=== PATIENT | female | born 1985 | race Caucasian/White ===

== ENCOUNTER 2016-07-07 19:24 | Emergency (ER) | payer BC, OTHER ==
[2016-07-07 19:47] VITALS: BP 106/68; PULSE 119; TEMP 98.4; BMI 28.3
[2016-07-07] MEDS ORDERED: predniSONE 20 MG TABLET (UD) PO ONE (20:27)
[2016-07-07] MEDS ORDERED: ALBUTEROL SO4 0.083% IH SOL 2.5 MG/3 ML VIAL.NEB. NEB ONE (20:27)
[2016-07-07] MEDS ORDERED: IPRATROPIUM BR 0.02% 0.5 MG/2.5 ML VIAL.NEB. NEB ONE (20:27)
[2016-07-07] MEDS ORDERED: predniSONE 20 MG TABLET (UD) ONE (20:28)
--- NOTE | 2016-07-07 20:28 | PDOC ---
History of Present Illness - History of Present Illness Initial Comments: 07/07/16 20:37 Patient is a 31 year old female with significant medical hx of asthma and hypothyroidism who is presenting to the ED with unrelenting cough since today. The patient reports using her ventolin several times today without any relief. She resorted to using her nebulizer but states that it hasnt helped either. The patient complains of associated dyspnea with her cough. Patient reports she was diagnosed with asthma three years ago and it tends to exacerbate during the winter. The patient is accompanied by her mother who is reporting the same symptoms. Denies fever, chills, chest pain, nausea, vomiting, diarrhea, diaphoresis. <Rosalba Berger - Last Filed: 07/07/16 20:37> - General History Source: Patient Exam Limitations: No Limitations <Pravin Ocampo - Last Filed: 07/11/16 08:21> - General Chief Complaint: Asthma Stated Complaint: ASTHMA Time Seen by Provider: 07/07/16 20:18 Past History <Rosalba Berger - Last Filed: 07/07/16 20:37> - Past Medical History Asthma: Yes - Psycho/Social/Smoking Cessation Hx Suicidal Ideation: No Smoking History: Never smoked <Pravin Ocampo - Last Filed: 07/11/16 08:21> - Past Medical History Allergies/Adverse Reactions: Allergies Allergy/AdvReac Type Severity Reaction Status Date / Time No Known Allergies Allergy Verified 07/07/16 19:28 Home Medications: Ambulatory Orders Albuterol Sulfate Inhaler - [Ventolin HFA Inhaler -] 1 - 2 inh PO Q4H PRN #1 Albuterol Sulfate Inhaler - [Ventolin HFA Inhaler -] 1 - 2 inh PO Q4H PRN #1 inhaler 07/07/16 Prednisone [Deltasone -] 60 mg PO DAILY #12 tablet 07/07/16 Oseltamivir Phosphate [Tamiflu -] 75 mg PO BID #10 capsule 07/09/16 Review of Systems - Review of Systems Comments:: 07/07/16 20:38 GENERAL/CONSTITUTIONAL: No fever or chills. No weakness. HEAD, EYES, EARS, NOSE AND THROAT: No change in vision. No ear pain or discharge. No sore throat. CARDIOVASCULAR: No chest pain. RESPIRATORY: Cough, dyspnea. No wheezing or hemoptysis. GASTROINTESTINAL: No nausea, vomiting, diarrhea or constipation. GENITOURINARY: No dysuria, frequency, or change in urination. MUSCULOSKELETAL: No joint or muscle swelling or pain. No neck or back pain. SKIN: No rash NEUROLOGIC: No headache, vertigo, loss of consciousness, or change in strength/ sensation. <Rosalba Berger - Last Filed: 07/07/16 20:37> - Review of Systems Able to Perform ROS?: Yes Comments:: 07/11/16 08:21 CORRECTION TO SCRIBE NOTE: PULM is positive for wheezing <DamarisPravin - Last Filed: 07/11/16 08:21> *Physical Exam - Vital Signs Last Vital Signs Temp Pulse Resp BP Pulse Ox 98.4 F 119 H 20 106/68 97 07/07/16 19:28 07/07/16 19:28 07/07/16 19:28 07/07/16 19:28 07/07/16 19:28 - Physical Exam Comments: 07/07/16 20:38 GENERAL: Awake, alert, and fully oriented, in no acute distress HEAD: No signs of trauma EYES: PERRLA, EOMI, sclera anicteric, conjunctiva clear ENT: Auricles normal inspection, hearing grossly normal, nares patent, oropharynx clear without exudates. Moist mucosa NECK: Normal ROM, supple, no lymphadenopathy, JVD, or masses LUNGS: Expiratory wheezes bilaterally. No crackles HEART: Regular rate and rhythm, normal S1 and S2, no murmurs, rubs or gallops ABDOMEN: Soft, nontender, normoactive bowel sounds. No guarding, no rebound. No masses EXTREMITIES: Normal range of motion, no edema. No clubbing or cyanosis. No cords, erythema, or tenderness NEUROLOGICAL: Cranial nerves II through XII grossly intact. Normal speech, normal gait SKIN: Warm, Dry, normal turgor, no rashes or lesions noted. ENDOCRINE: No increased thirst. No abnormal weight change. HEMATOLOGIC/LYMPHATIC: No anemia, easy bleeding, or history of blood clots. ALLERGIC/IMMUNOLOGIC: No hives or skin allergy. <Rosalba Berger - Last Filed: 07/07/16 20:37> - Vital Signs Last Vital Signs Temp Pulse Resp BP Pulse Ox 98.4 F 119 H 20 106/68 97 07/07/16 19:28 07/07/16 19:28 07/07/16 19:28 07/07/16 19:28 07/07/16 19:28 <Pravin Ocampo - Last Filed: 07/11/16 08:21> Medical Decision Making - Medical Decision Making 07/07/16 21:35 A portion of this note was documented by scribe services under my direction. I have reviewed the details of the note, within reason, and agree with the documentation with the following case summary and management plan written by me. Patient treated in the ED. Nursing notes are reviewed and incorporated into the medical decision-making. Vital signs reviewed. Peripheral IV access obtained by the nurse, laboratory studies are drawn and sent, reviewed and interpreted by myself. Vital Signs Temp Pulse Resp BP Pulse Ox 98.4 F 119 H 20 106/68 97 07/07/16 19:28 07/07/16 19:28 07/07/16 19:28 07/07/16 19:28 07/07/16 19:28 31-year-old female with past medical history of hypothyroidism, asthma, never hospitalized presents with asthma exacerbation. She has a positive sick contact with her mother with URI symptoms. Developed wheezing today. Has used her albuterol pump multiple times. Came into the ED for evaluation. Denies fevers or chills. Denies cough. Patient is couple appearing but tachycardic likely secondary to multiple albuterol uses. She is wheezing. Patient was given nebulizers and steroids with drastic improvement. Patient feels comfortable to go home and breathing comfortably.I discussed the physical exam findings, ancillary test results and final diagnoses with the patient. I answered all of the patient's questions. The patient was satisfied with the care received and felt comfortable with the discharge plan and treatment plan. The patient will call their primary care physician within 24 hours to arrange follow-up and will return to the Emergency Department with any new, persistant or worsening symptoms. <Pravin Ocampo - Last Filed: 07/11/16 08:21> *DC/Admit/Observation/Transfer - Attestations Scribe Attestion: 07/07/16 20:39 Documentation prepared by Rosalba Berger, acting as medical malpractice paralegal for Pravin Ocampo MD. <Rosalba Berger - Last Filed: 07/07/16 20:37> - Discharge Dispostion Admit: No <Pravin Ocampo - Last Filed: 07/11/16 08:21> Diagnosis at time of Disposition: Asthma exacerbation - Discharge Dispostion Disposition: HOME Condition at time of disposition: Improved - Prescriptions Prescriptions: Prednisone [Deltasone -] 60 mg PO DAILY #12 tablet Albuterol Sulfate Inhaler - [Ventolin HFA Inhaler -] 1 - 2 inh PO Q4H PRN #1 PRN Reason: Wheezing Albuterol Sulfate Inhaler - [Ventolin HFA Inhaler -] 1 - 2 inh PO Q4H PRN #1 inhaler PRN Reason: Wheezing - Referrals Referrals: Mary Hurley MD [Primary Care Provider] - - Patient Instructions Printed Discharge Instructions: Asthma -- Adult Additional Instructions: Take 2 puffs of albuterol every 4 hours as needed for wheezing. Take 60 mg prednisone daily for the next 4 days.
[2016-07-07] MEDS ORDERED: ALBUTEROL SO4 2.5/IPRATROPIUM 0.5 INH SOL 3 ML VIAL.NEB. NEB ONE (20:33)
== END 2016-07-07 21:56 | disposition home or self-care (01) ==
LOC: JER 19:24 → JERFT 19:24 → JER 21:56
PROC: 3E0F7GC Introduction of Other Therapeutic Substance into Respiratory Tract, Via Natural or Artificial Opening (ICD-10-PCS; principal; 2016-07-07)
PROC: 3E0F7GC Introduction of Other Therapeutic Substance into Respiratory Tract, Via Natural or Artificial Opening (ICD-10-PCS; 2016-07-07)
DX: J45.901 Unspecified asthma with (acute) exacerbation (principal); E03.9 Hypothyroidism, unspecified
CPT/HCPCS: 99281-25

== ENCOUNTER 2016-07-09 17:58 | Emergency (ER) | payer BC, OTHER ==
[2016-07-09 18:04] VITALS: BP 116/82; TEMP 99; BMI 28.3
[2016-07-09] MEDS ORDERED: ALBUTEROL SO4 2.5/IPRATROPIUM 0.5 INH SOL 3 ML VIAL.NEB. NEB ONE ×2 (18:31→18:34)
--- NOTE | 2016-07-09 18:44 | PDOC ---
History of Present Illness - General Chief Complaint: Cold Symptoms Stated Complaint: SOB/FEVER Time Seen by Provider: 07/09/16 18:20 History Source: Patient Exam Limitations: No Limitations - History of Present Illness Initial Comments: 07/09/16 18:34 Acute reassess the patient of asthma. Patient states mother and she were seen in this emergency department 2 days ago, was treated with albuterol nebulizers and prednisone with some good resolved. Patient was discharged and has continued albuterol pump and prednisone at home. Mother needed admission and is still currently in the hospital. Patient is concerned her apartment is infested with mold which is causing both her and her mothers respiratory illness. Severity: reports: mild, moderate Associated Symptoms: reports: fever/chills Past History - Travel Traveled outside of the country in the last 30 days: No Close contact w/someone who was outside of country & ill: No - Past Medical History Allergies/Adverse Reactions: Allergies Allergy/AdvReac Type Severity Reaction Status Date / Time No Known Allergies Allergy Verified 07/09/16 18:04 Home Medications: Ambulatory Orders Albuterol Sulfate Inhaler - [Ventolin HFA Inhaler -] 1 - 2 inh PO Q4H PRN #1 Albuterol Sulfate Inhaler - [Ventolin HFA Inhaler -] 1 - 2 inh PO Q4H PRN #1 inhaler 07/07/16 Prednisone [Deltasone -] 60 mg PO DAILY #12 tablet 07/07/16 Oseltamivir Phosphate [Tamiflu -] 75 mg PO BID #10 capsule 07/09/16 Asthma: Yes - Psycho/Social/Smoking Cessation Hx Anxiety: No Suicidal Ideation: No Smoking History: Never smoked Hx Alcohol Use: Yes (SOCIAL) Drug/Substance Use Hx: No Substance Use Type: None Review of Systems - Review of Systems Able to Perform ROS?: Yes Is the patient limited Ecuadorean proficient: Yes Constitutional: Yes: Symptoms Reported, See HPI, Fever, Loss of Appetite, Malaise HEENTM: Yes: Symptoms Reported, See HPI, Nose Congestion, Throat Swelling Respiratory: Yes: Symptoms reported, See HPI, Cough, Shortness of Breath, Wheezing Integumentary: Yes: Symptoms Reported All Other Systems: Reviewed and Negative *Physical Exam - Vital Signs Last Vital Signs Temp Pulse Resp BP Pulse Ox 99.0 F 115 H 20 116/82 98 07/09/16 18:00 03/26/17 18:00 07/09/16 18:00 07/09/16 18:00 07/09/16 18:00 - Physical Exam General Appearance: Yes: Nourished, Appropriately Dressed, Apparent Distress, Mild Distress HEENT: positive: RICARDO, TMs Normal (congested but landmarks easily visualized), Nasal Congestion, Rhinorrhea. negative: Normal ENT Inspection, Pharyngeal Erythema Neck: positive: Tender, Supple. negative: Lymphadenopathy (R), Lymphadenopathy (L) Respiratory/Chest: positive: Wheezing. 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 An influenza B testing positive. Will send prescription in for Tamiflu, encourage patient to continue medications as prescribed previously with prednisone and DuoNeb, and follow-up with PMD as needed *DC/Admit/Observation/Transfer Diagnosis at time of Disposition: Influenza B - Discharge Dispostion Disposition: HOME Condition at time of disposition: Stable Admit: No - Prescriptions Prescriptions: Oseltamivir Phosphate [Tamiflu -] 75 mg PO BID #10 capsule - Referrals Referrals: Mary Hurley MD [Primary Care Provider] - - Patient Instructions Printed Discharge Instructions: DI for Viral Upper Respiratory Infection -- Adult Additional Instructions: Rest, drink lots of fluids: Teas, water, soups, Pedialyte Saltwater gargles Steamy showers/seem to face break up mucus Old-fashioned treatments help! Avoid contact with others until fevers and cough resolved as this is very contagious Lots of handwashing and good hygiene Continue [id number] medications for symptomatic relief Tylenol or Motrin for fever and pain Take all of Tamiflu as directed: 1 tab every 12 hours for 5 days Followup with private physician in one to 2 days as needed or if worsening Return to emergency department for worsened symptoms, fevers, dehydration Influenza takes between 5 and 7 days for resolution To not participate in any activity, work, or school until fevers and cough are gone for at least one day - Post Discharge Activity Work/School Note: Back to Work
[2016-07-09 20:31] VITALS: PULSE 100
== END 2016-07-09 20:37 | disposition home or self-care (01) ==
LOC: JERFT 17:58
PROC: 3E0F7GC Introduction of Other Therapeutic Substance into Respiratory Tract, Via Natural or Artificial Opening (ICD-10-PCS; principal; 2016-07-09)
PROC: 3E0F7GC Introduction of Other Therapeutic Substance into Respiratory Tract, Via Natural or Artificial Opening (ICD-10-PCS; 2016-07-09)
DX: J10.1 Influenza due to other identified influenza virus with other respiratory manifestations (principal)
CPT/HCPCS: 71020-TC; 87804; 99281-25

== ENCOUNTER 2017-03-20 09:33 | Day surgery (SDC) | payer BC, OTHER ==
[2017-03-19 14:15] VITALS: BMI 26.6
[~2017-03-20 09:33] MED LIST: LIDOCAINE 1%/EPI 1:100000 (20 ML MULTI DOSE VIAL) IJ ONE
[2017-03-20] MEDS ORDERED: LIDOCAINE 1%/EPI 1:100000 (20 ML MULTI DOSE VIAL) ONE ×2 (11:41→12:13)
[2017-03-20] MEDS ORDERED: MIDAZOLAM HCL 2 MG/2 ML SINGLE DOSE VIAL ONE (11:59)
[2017-03-20] MEDS ORDERED: PROPOFOL 20 ML ONE ×2 (12:04→12:12)
--- NOTE | 2017-03-20 12:10 | HP ---
Past Medical History - Primary Care Physician PCP:: Cooper Garza - Admission Chief Complaint: RT labia hypertrophy History of Present Illness: 31 yo f with hx of RT labia hypertrophy , admitted for partial RT vulvectomy, labia plasty, risks has been discussed with patient. History Source: Patient Limitations to Obtaining History: No Limitations - Past Medical History Pulmonary: Yes: Asthma ...: 0 Endocrine: Yes: Hypothyroidism - Past Surgical History Hx Myomectomy: No Hx Transabdominal Cerclage: No - Smoking History Smoking history: Never smoked - Alcohol/Substance Use Hx Alcohol Use: Yes (SOCIAL) - Social History History of Recent Travel: No Home Medications - Allergies Allergies/Adverse Reactions: Allergies Allergy/AdvReac Type Severity Reaction Status Date / Time No Known Allergies Allergy Verified 03/20/17 10:01 - Home Medications Home Medications: Ambulatory Orders Albuterol Sulfate Inhaler - [Ventolin Hfa Inhaler -] 1 - 2 inh PO Q4H PRN Ferrous Sulfate [Feosol] 325 mg PO DAILY 03/19/17 Levothyroxine [Synthroid -] 25 mcg PO DAILY 03/19/17 Review of Systems - Review of Systems Constitutional: reports: No Symptoms Eyes: reports: No Symptoms HENT: reports: No Symptoms Neck: reports: No Symptoms Cardiovascular: reports: No Symptoms Respiratory: reports: No Symptoms Gastrointestinal: reports: No Symptoms Genitourinary: reports: No Symptoms, Pain Breasts: reports: No Symptoms Reported Musculoskeletal: reports: No Symptoms Integumentary: reports: No Symptoms Neurological: reports: No Symptoms Endocrine: reports: No Symptoms Hematology/Lymphatic: reports: No Symptoms Psychiatric: reports: No Symptoms Physical Exam-[employer] Vital Signs: Vital Signs Temperature 98.1 F 03/20/17 10:02 Pulse Rate 72 03/20/17 10:02 Respiratory Rate 18 03/20/17 10:02 Blood Pressure 104/69 03/20/17 10:02 O2 Sat by Pulse Oximetry (%) 97 03/20/17 10:04 Constitutional: Yes: Well Nourished, No Distress, Calm Eyes: Yes: WNL, Conjunctiva Clear, EOM Intact HENT: Yes: WNL, Atraumatic, Normocephalic Neck: Yes: WNL, Supple, Trachea Midline Cardiovascular: Yes: WNL, Regular Rate and Rhythm Respiratory: Yes: WNL, Regular, CTA Bilaterally Gastrointestinal: Yes: WNL ...Rectal Exam: Yes: WNL Renal/: Yes: WNL Pelvis: Yes: WNL External Genitalia: Yes: Other (rt labia minora redundant skin) Breast(s): Yes: WNL Musculoskeletal: Yes: WNL Extremities: Yes: WNL Integumentary: Yes: WNL Neurological: Yes: WNL, Alert, Oriented ...Motor Strength: WNL Psychiatric: Yes: WNL, Alert, Oriented Problem List - Problem (1) Hypertrophy of labia minora Code(s): N90.60 - UNSPECIFIED HYPERTROPHY OF VULVA Assessment/Plan partial rt vulvectomy, labia plasty
[2017-03-20] MEDS ORDERED: LIDOCAINE HCL 1%, 10 MG/ML (20ML VIAL) ONE (12:13)
[2017-03-20] MEDS ORDERED: BUPIVACAINE HCL/PF 0.5% (5MG/ML) 10 ML VIAL ONE (12:13)
[2017-03-20] MEDS ORDERED: LIDOCAINE HCL/PF 2% SDV 5ML VIAL ONE (12:16)
[2017-03-20] MEDS ORDERED: SODIUM CHLORIDE 0.9% P/F 10 ML VIAL IJ ONE (12:25)
[2017-03-20] MEDS ORDERED: ceFAZolin SODIUM 1 GM VIAL ONE (12:25)
[2017-03-20] MEDS ORDERED: ceFAZolin SODIUM 1 GM VIAL IVPB ONE (12:25)
[2017-03-20] MEDS ORDERED: LIDOCAINE 1%/EPI 1:100000 (20 ML MULTI DOSE VIAL) IJ ONE ×2 (12:26)
[2017-03-20] MEDS ORDERED: KETOROLAC TROMETHAMINE 30 MG/1 ML VIAL ONE (12:40)
[2017-03-20] MEDS ORDERED: BACITRACIN 15 GM TUBE TOPICAL OINTMENT ONE (12:43)
[2017-03-20] MEDS ORDERED: oxyCODONE HCL 5 MG TABLET PO PRN (13:32)
[2017-03-20] MEDS ORDERED: ONDANSETRON 4 MG/2 ML VIAL IVPUSH PRN (13:32)
[2017-03-20] MEDS ORDERED: LACTATED RINGERS SOLUTION 1,000 ML IV SCH (13:45)
[2017-03-20 14:14] VITALS: TEMP 98.2
[2017-03-20 14:17] VITALS: PULSE 78
[2017-03-20 15:00] VITALS: BP 110/70
--- NOTE | 2017-03-21 11:52 | OP ---
DATE OF OPERATION: 03/20/2017 PREOPERATIVE DIAGNOSIS: Right labial hypertrophy. POSTOPERATIVE DIAGNOSIS: Right labial hypertrophy. PROCEDURE: Excision of the excess labial skin and right labiaplasty. SURGEON: Cooper Garza MD ANESTHESIA: General. SLAT PICKLER: Brandy Murrieta MD ESTIMATED BLOOD LOSS: 50 mL. OPERATION: The patient was taken to the operating room, had adequate general anesthesia. Examination under anesthesia revealed a hypertrophic irregular right labia with the folding of skin. This was measured approximately 4 cm. The left labia appeared to be slightly hypertrophic, but within normal limits. Cervix was clear, no lesion. Uterus normal sized. Adnexa, no masses palpable. Then, the area of the excess skin was marked with a pen marker. Then, the area was infiltrated with 1% lidocaine, and then, with a knife, the excess area of the labia minora was excised preserving the skin, and then, the submucosal area was brought together with interrupted suture of 4-0 Biosyn. Then, the skin wedge was closed with interrupted suture of a 4-0 Biosyn interrupted. No active bleeding was seen. Then, symmetry was preserved. Patient tolerated the procedure well and left the OR in good condition. Rico [id number]
--- NOTE | 2017-03-21 16:03 | PATH ---
Surgical Pathology Report Patient Name: ALVINO LEMON [facility]. Rec. #: [id number] /Age/Gender: 1985 (Age: 31) / F Account: [id number] Location: [facility] SURGICAL Taken: 03/20/2017 Received: 03/20/2017 Reported: 03/21/2017 Physicians: Cooper Garza M.D. Specimen(s) Received RIGHT LABIA Clinical History Other specified hypertrophy of vulva Final Diagnosis LABIA, RIGHT, EXCISION: VULVAR TISSUE WITH MILD CHRONIC INFLAMMATION. Electronically Signed Leni Stevenson M.D. Gross Description Received in formalin labeled "right labia," is a 4.2 x 1.8 x 0.5 cm rodriguez, irregular portion of soft tissue and skin, consistent with a labium. Case Supervisor sections are submitted in one cassette. /03/20/201703/20/2017
== END 2017-03-20 15:04 | disposition home or self-care (01) ==
LOC: JASU-SURG 09:33
PROVIDERS: ATTEND Obstetrics & Gynecology
PROC: 0UBMXZZ Excision of Vulva, External Approach (ICD-10-PCS; principal; 2017-03-20 11:00)
DX: N90.69 Other specified hypertrophy of vulva (principal)
CPT/HCPCS: 84703; 88305-TC

== ENCOUNTER 2021-10-25 04:29 | Day surgery (SDC) | payer BC, OTHER ==
[2021-10-20 16:16] VITALS: BMI 30.5
[2021-10-25] MEDS ORDERED: PROPOFOL 20 ML ONE ×2 (09:12→09:42)
[2021-10-25] MEDS ORDERED: LIDOCAINE HCL/PF 2% SDV 5ML VIAL ONE (09:13)
[2021-10-25] MEDS ORDERED: MIDAZOLAM HCL 2 MG/2 ML SINGLE DOSE VIAL ONE (09:16)
[2021-10-25] MEDS ORDERED: DEXAMETHASONE SOD PHOSPHATE 4 MG/1 ML VIAL ONE (09:26)
[2021-10-25] MEDS ORDERED: ONDANSETRON 4 MG/2 ML VIAL IVPUSH PRN ×2 (09:29→10:34)
[2021-10-25] MEDS ORDERED: oxyCODONE HCL 5 MG TABLET PO PRN ×3 (09:29→10:34)
[2021-10-25] MEDS ORDERED: LACTATED RINGERS SOLUTION 1,000 ML IV SCH (09:30)
[2021-10-25] MEDS ORDERED: ceFAZolin SODIUM 1 GM VIAL ONE (09:32)
[2021-10-25] MEDS ORDERED: ceFAZolin SODIUM 1 GM VIAL IVPB ONE (09:32)
[2021-10-25] MEDS ORDERED: BACITRACIN 15 GM TUBE TOPICAL OINTMENT ONE (09:52)
[2021-10-25] MEDS ORDERED: BACITRACIN 15 GM TUBE TOPICAL OINTMENT TP ONE (09:53)
[2021-10-25] MEDS ORDERED: KETOROLAC TROMETHAMINE 30 MG/1 ML VIAL ONE (09:59)
[2021-10-25] MEDS ORDERED: FENTANYL CITRATE/PF 50 MCG/ML VIAL ONE ×2 (10:16→10:36)
[2021-10-25] MEDS ORDERED: IBUPROFEN 600 MG TABLET (FP) PO PRN (10:34)
[2021-10-25] MEDS ORDERED: IBUPROFEN 800 MG/8 ML IJ IVPB PRN (10:34)
[2021-10-25] MEDS ORDERED: ELECTROLYTE-148 SOLN 1,000 ML IV SCH (10:45)
[2021-10-25 12:49] VITALS: TEMP 98.9
[2021-10-25 13:14] VITALS: BP 105/68; PULSE 62
== END 2021-10-25 12:30 | disposition home or self-care (01) ==
LOC: JASU-SURG 04:29
PROVIDERS: ATTEND Obstetrics & Gynecology
PROC: 0UBM0ZZ Excision of Vulva, Open Approach (ICD-10-PCS; principal; 2021-10-25 09:00)
DX: N90.60 Unspecified hypertrophy of vulva (principal)
CPT/HCPCS: 81025; 88304-TC; 94760